=== PATIENT | female | born 1940 | race Caucasian/White ===

== ENCOUNTER 2023-10-02 14:40 | Emergency (ER) | payer OTHER, MEDICAID ==
[~2023-10-02] VITALS: Ht 167.6 cm; Wt 99.8 kg
[2023-10-02 14:47] VITALS: BP 142/89; PULSE 75; RESP 14; TEMP 98; O2SAT 98
[2023-10-02] MEDS ORDERED: HYDROcodone/APAP 5/325 MG 1 TAB TAB PO ONE (17:20)
[2023-10-02] MEDS: ACETAMINOPHEN EXTRA STRENGTH 500 MG TAB PO ONE (17:47)
[2023-10-02] MEDS ORDERED: ACET-10509 PO (18:12)
[2023-10-02] MEDS ORDERED: SULF-59 PO (18:12)
[2023-10-02 18:19] VITALS: BP 148/75; PULSE 81; RESP 14; TEMP 98; O2SAT 98
== END 2023-10-02 19:48 | disposition home or self-care (01) ==
LOC: MED 14:40
DX: M24.542 Contracture, left hand (principal); L03.114 Cellulitis of left upper limb; T81.49XA Infection following a procedure, other surgical site, initial encounter; Z88.5 Allergy status to narcotic agent; Z79.899 Other long term (current) drug therapy
CPT/HCPCS: 73130; 99283